=== PATIENT | female | born 1995 | race American Indian/Alaskan Native ===

== ENCOUNTER 2020-10-23 10:13 | Emergency (ER) | payer OTHER, MEDICAID ==
[2020-10-23 10:32] VITALS: BP 126/95
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
== END 2020-10-23 14:06 | disposition home or self-care (01) ==
LOC: ED 10:13
DX: S16.1XXA Strain of muscle, fascia and tendon at neck level, initial encounter (principal); S01.111A Laceration without foreign body of right eyelid and periocular area, initial encounter; Z79.899 Other long term (current) drug therapy; V49.49XA Driver injured in collision with other motor vehicles in traffic accident, initial encounter; W22.10XA Striking against or struck by unspecified automobile airbag, initial encounter; Y93.89 Activity, other specified; Y92.410 Unspecified street and highway as the place of occurrence of the external cause; Y99.8 Other external cause status
CPT/HCPCS: 70450; 72125